=== PATIENT | female | born 1990 | race Hispanic/Latino ===

== ENCOUNTER 2018-10-13 08:30 | Outpatient (RCR) | payer OTHER, SELFPAY | END 2018-10-13 23:59 | LOC: DC 08:30 | PROVIDERS: Family Provider Family Medicine; PCP Family Medicine; Visit Provider Advanced Practice Midwife | DX: O24.419 Gestational diabetes mellitus in pregnancy, unspecified control (principal) | CPT/HCPCS: 97802 ==

== ENCOUNTER 2018-10-26 10:30 | Outpatient (RCR) | payer OTHER, SELFPAY | END 2018-10-26 23:59 | disposition home or self-care (01) | LOC: DC 10:30 | PROVIDERS: Family Provider Family Medicine; PCP Family Medicine; Visit Provider Advanced Practice Midwife | DX: O24.419 Gestational diabetes mellitus in pregnancy, unspecified control (principal); Z3A.00 Weeks of gestation of pregnancy not specified | CPT/HCPCS: G0108 ==

== ENCOUNTER 2018-12-10 19:07 | Inpatient (IN) | payer OTHER, SELFPAY ==
[2018-12-10 19:46] VITALS: BMI 32.9
--- NOTE | 2018-12-10 19:47 | PCM.HP.OB ---
- Problem List (1) GDM (gestational diabetes mellitus), class A1 Status: Acute History Date of Admission: 12/10/18 Final LORENZO: 12/11/18 Final LORENZO Source: US <20 weeks Gestational age: 39 Weeks and 6 Days History of this : This is a 28 year-old, G [1], P [0], at 39+6 weeks gestational age presenting for IOL for Diet-Controlled Gestational Diabetes. Patient denies any VB, LOF or DFM at this time. Patient denies any regular contractions currently. Smoking Status: Never smoker Alcohol: None Number of Fetus(es): 1 Heart Tracing: Baseline 115, moderate variability, + accels, no decels noted TOCO Analysis: Uterine irritability noted on tocometer History Past Pregnancies: Past Pregnancies Delivery Date Name GA/Weeks Outcome Route Weight Infant Gender Labor Length Anesthesia Delivery Location Provider FOB Labs: GBS negative, CF screen Negative, Sequential Screen Negative, Urine Culture Negative, Urine Tox Screen Negative, H/H = 11.8/35.2 --> , Syphilis Neg, HIV NR, Rubella Immune, HepBsAg Neg, O+, Abs Neg, GC/CT Neg, 1 hour GCT elevated and 3 hour GTT with 2 elevated values Expected Delivery Method: Spontaneous Vaginal Describe any other labor & delivery plans:: Patient planning for an epidural and desires to breastfeed Number of Visits: 13 Review of Systems Constitutional: Denies: Chills, Fever, Weight Change HEENT: Denies: Head Aches, Sinus Congestion, Sinus Drainage Cardiovascular: Denies: Chest Pain, Palpitations Respiratory: Denies: Cough, Shortness of breath at rest, Sputum production Gastrointestinal: Denies: Abdominal Pain, Nausea, Vomiting Genitourinary: Denies: Dysuria Musculoskeletal: Denies: Joint Pain, Joint Tenderness Skin: Denies: Rash, Wounds Neurological: Denies: Numbness, Tingling, Focal weakness Psychiatric: Denies: Anxiety, Depression, Homicidal Ideations, Suicidal Ideations Hematologic/ Lymphatic: Denies: Easy Bruising, Easy Bleeding Physical Exam Vitals: VSS, Afebrile - see nursing notes for vitals General: Alert, Oriented x3, No apparent distress HEENT: Atraumatic, Normocephalic. Negative for: Thyromegaly, Lymphadenopathy Cardiovascular: Regular rate, Regular Rhythm Lungs: Clear to auscultation Abdomen: Bowel Sounds Present, Gravid - EFW = 8.5#, Appropriate for Gestational Age Extremities:: No edema Neurological: Deep Tendon Reflexes 2+/4 and Symmetrical, Neuro grossly intact [employer]: Normal external genitalia. Negative for: Vulvar lesions Estimated gestational size: Appropriate for gestational size Presentation: Cephalic Cervix Dilation (cm): 1 Station: -3 Effacement (%): 60 Assessment/Plan All Active Problems GDM (gestational diabetes mellitus), class A1 (Acute) This is a 28 year-old, G [1], P [0], at 39+6 weeks gestational age, IOL for Type A1 GDM, Category I FHT 1) Admit patient - start IV at this time and send admission lab work 2) Cytotec 25mcg PV q 4 hours PRN x 6 doses max. Will reevaluate cervix after 1st dose 3) Consider summers bulb placement after 1st dose of cytotec placed 4) Dr. Strong aware of admission and is in agreeement with plan of care Nena MCCOY
[2018-12-10 20:02] LABS: Absolute Lymphocyte Count 2.79 X10^3/ul (0.83-4.51); Absolute Neutrophil Count 7.1 X10^3/uL (2.0-7.7); Basophil# 0.01 X10^3/uL; Basophil% 0.1 % (0-1); Eosinophil# 0.03 X10^3/uL; Eosinophils% 0.3 % (0-5); Hematocrit 37.2 % (37-47); Hemoglobin 12.5 g/dl (12.0-15.0); Lymphocyte # 2.79 X10^3/ul (4.0); Lymphocyte % 26.5 % (19-41); Mean Corp Hgb Conc 33.6 g/gl (32-36); Mean Corpuscular Hgb 31.1 pg (27.0-32.0); Mean Corpuscular Volume 92.5 fL (81-99); Mean Platelet Vol. 11.1 fl (6.2-12.0); Monocyte# 0.56 X10^3/uL; Monocyte% 5.3 % (0-10); Neutrophil # 7.11 X10^3/uL (2.7-7.7); Neutrophil % 67.6 % (47-70); Platelet Count 173 K/mm3 (150-450); RBC Distribution Width CV 13.2 % (11.6-14.6); RBC Distribution Width SD 44.7 fl (35.1-43.9); Red Blood Count 4.02 M/mm3 (4.2-5.4); White Blood Count 10.5 K/mm3 (4.4-11.0)
[2018-12-10 20:12] LABS: POSITIVE COUNT NO; POSITIVE DIFFERENTIAL NO; POSITIVE MORPHOLOGY NO
[2018-12-10] MEDS: Lactated Ringers 1,000 ML 50 ML IV (20:42)
[2018-12-11] MEDS: 0.9% Normal Saline 100 ML IV.SOLN. INTRA-UTER (05:23)
[2018-12-11] MEDS: Lactated Ringers 1,000 ML 50 ML IV ×2 (05:23→12:28)
--- NOTE | 2018-12-11 05:23 | PN.OBGYN_ITS ---
Patient Problems: Active and Suspected Problems GDM (gestational diabetes mellitus), class A1 (Acute) Subjective: Patient sitting up in bed at this time, reporting that she is feeling more irregular contractions currently. Decision for repeat SVE to be done now - patient has had 2 PV doses of cytotec. Will plan to insert summers bulb catheter if able. Objective: VSS, Afebrile FHT baseline 120, moderate variability, +accels, no decels noted Ctx irregular q 2-10 minutes, mildly strong to palpation SVE = 1.5/70/-2, cervix moderately firm and posterior - Physical Exam General: Alert, Oriented x3, Cooperative HEENT: Atraumatic, Normocephalic Lungs: Normal air movement Cardiovascular: Regular rate, Regular Rhythm Abdomen: Soft, Non Tender, Gravid Extremities: No edema Skin: No rashes Neurological: Cranial nerves II-XII grossly intact Psych/Mental Status: Normal Affect, Appropriate Weight: 223 lb Body Mass Index (BMI) 32.9 Laboratory Tests Past 24 Hrs 12/10/18 12/10/18 19:35 19:35 WBC 10.5 RBC 4.02 L Hgb 12.5 Hct 37.2 MCV 92.5 MCH 31.1 MCHC 33.6 RDW 13.2 RDW Differential 44.7 H Plt Count 173 MPV 11.1 Immature Gran % (Auto) 0.200 Neut % (Auto) 67.6 Lymph % (Auto) 26.5 Saline % (Auto) 5.3 Eos % (Auto) 0.3 Baso % (Auto) 0.1 Absolute Neuts (auto) 7.1 Absolute Lymphs (auto) 2.79 Total Counted Not Reportable Blood Type O POSITIVE Antibody Screen NEGATIVE Medical Necessity - Tobacco Use Smoking Status: Never smoker Assessment/Plan All Active Problems GDM (gestational diabetes mellitus), class A1 (Acute) 28 y/o @ 40 weeks, IOL for Diet-Controlled GDM, Category I FHT P: 1) Cervical summers bulb placed per protocol without difficulty 2) Plan to start IV pitocin for labor augmentation if summers bulb does not come out within 1 hour 3) Continue to encourage position changes and PO hydration at this time Nena MCCOY
[2018-12-11] MEDS: Oxytocin 30 units/NS 500 ml 30 UNITS/500 ML IV.SOLN IV (06:39)
--- NOTE | 2018-12-11 08:06 | PCM.PN.BLA ---
Progress Note pt seen at bedside, resting comfortably. VE: 2.5cm summers still in place. Will continue pitocin. Reviewed IOL plan going forward today. FHR remains category 1. FS well contolled during - decision made to check q2hr in active labor unless abnormal readings.
--- NOTE | 2018-12-11 11:52 | PCM.PN.BLA ---
Progress Note pt seen at bedside, VE: /-2- AROM performed clear fluid. Continue Pitocin. FHR tracing remains category 1. pt reports feeling contractions but not too painful at this time. If indicated may place IFM/IUPC. Anticipate .
[2018-12-11] MEDS: fentaNYL-bupivacaine (epidural) 100 ML BAG EPIDURAL ×2 (13:06→17:57)
[2018-12-11 14:05] LABS: Bedside Glucose 84 mg/dL (70-110)
--- NOTE | 2018-12-11 16:33 | PCM.PN.BLA ---
Progress Note pt seen at bedside- resting comfortable with epidural in place. VE performed- /-2. IUPC in place. continue pitocin. Anticipate . FHR remains category 1
[2018-12-11 16:46] LABS: Bedside Glucose 95 mg/dL (70-110)
[2018-12-11 19:36] LABS: Bedside Glucose 78 mg/dL (70-110)
[2018-12-11 20:26] LABS: Bedside Glucose 104 mg/dL (70-110)
[2018-12-11] MEDS: Oxytocin 30 units/NS 500 ml 30 UNITS/500 ML IV.SOLN 334 UNITS IV (21:47)
[2018-12-11] MEDS: Oxytocin 30 units/NS 500 ml 30 UNITS/500 ML IV.SOLN 167 UNITS IV (22:17)
--- NOTE | 2018-12-11 22:26 | PCM.OPRPT ---
Vaginal Delivery Maternal Presentation: Medically Indicated Induction Method of Induction: Pitocin, Moss Bulb, Cytotec Medical Reason for Induction: - - Gestational DM A1 Amniotic Membrane Rupture Type: Artificial Amniotic Fluid Description: Clear Final LORENZO: 12/11/18 Final LORENZO Source: US <20 weeks Gestational age: 40 Weeks and 0 Days Date of Procedure: 12/11/18 Pre-Operative Diagnosis: GMDA1, term gestation Post-Operative Diagnosis: Live male Surgery/ Procedure Performed: Spontaneous Vaginal Delivery Type of Anesthesia: Epidural Description of Procedure: of live male infant born without complications. with good maternal effort and downward gentle traction anterior shoulder delivered followed by rest of body. delayed cord clamping. placenta delivered with gentle traction. Presentation: Vertex Placental Delivery Description: Spontaneous Placenta Disposition: [facility] Cord Vessel Description: 3 Vessels Cord Entanglement: None Drain: Moss to straight drain Estimated Blood Loss: 450 Infant A gender: Male (1 minute): 8 (5 minute): 9 Episiotomy Description: None Laceration: Perineal Extension/lac, Vaginal Extension/lac - 2nd perineal repaired with 2-0 vicryl and 3-0 rapide. 1st degree vaginal repaired with 3-0 vicryl and 3-0 rapide, 1st degree, 2nd degree Medications given after delivery: IV Pitocin Complications: None
[2018-12-12 00:21] LABS: Bedside Glucose 119 mg/dL (70-110)
[2018-12-12] MEDS: Ibuprofen 600 MG Tablet PO ×3 (00:48→18:28)
[2018-12-12 03:35] VITALS: BP 108/59; PULSE 90; RESP 18; TEMP 37.1; O2SAT 95
[2018-12-12 08:00] VITALS: BP 114/59; PULSE 85; RESP 16; TEMP 36.5
[2018-12-12 12:00] VITALS: BP 117/58; PULSE 78; RESP 18; TEMP 36.5
--- NOTE | 2018-12-12 13:36 | PCM.PN.OB ---
Patient Problems: Active and Suspected Problems GDM (gestational diabetes mellitus), class A1 (Acute) Subjective: pt seen at bedside, doing well. pt reports good pain control. lochia mild. breast feeding. - Physical Exam General: Alert, Oriented x3 Abdomen: Soft, Non Tender, Non-Distended, - - fundus firm Extremities: No Calf Tenderness Neurological: Cranial nerves II-XII grossly intact Vital Signs Temp Pulse Resp BP Pulse Ox 97.7 F L 85 16 114/59 L 95 12/12/18 08:00 12/12/18 08:00 12/12/18 08:00 12/12/18 08:00 12/12/18 03:35 Oxygen Delivery Method Room Air Weight: 101.151 kg Body Mass Index (BMI) 32.9 Intake and Output for Last 24 Hours 12/10/18 12/11/18 12/12/18 23:59 23:59 23:59 Intake Total 2930 / 3811 881 / 881 Output Total 2500 / 3400 1500 / 1500 Balance 430 / 411 -619 / -619 POC Glucose 12/11/18 12/11/18 12/11/18 23:58 20:13 17:59 POC Glucose 119 H 104 78 12/11/18 12/11/18 16:05 13:54 POC Glucose 95 84 Medical Necessity - Tobacco Use Smoking Status: Never smoker Assessment/Plan All Active Problems GDM (gestational diabetes mellitus), class A1 (Acute) PPD#1, doing well routine care pain mgmt
[2018-12-12 16:00] VITALS: BP 116/65; PULSE 73; RESP 16; TEMP 36.4
[2018-12-12 20:00] VITALS: BP 115/69; PULSE 70; RESP 16; TEMP 36
[2018-12-12] MEDS: Acetaminophen 500 MG Tablet 1000 MG PO (20:08)
[2018-12-13] MEDS: Ibuprofen 600 MG Tablet PO ×4 (00:04→20:16)
[2018-12-13 01:50] VITALS: BP 100/56; PULSE 71; RESP 17; TEMP 36
[2018-12-13] MEDS: Acetaminophen 500 MG Tablet 1000 MG PO ×2 (04:04→12:24)
[2018-12-13 08:20] VITALS: BP 105/61; PULSE 66; RESP 16; TEMP 36.2
--- NOTE | 2018-12-13 09:22 | PCM.PN.OB ---
Patient Problems: Active and Suspected Problems GDM (gestational diabetes mellitus), class A1 (Acute) Subjective: pt seen at bedside, doing well. pt reports good pain control. lochia mild. breast feeding- supplementing with formula at this time too. - Physical Exam General: Alert, Oriented x3 Abdomen: Soft, Non-Distended, - - fundus firm Extremities: No Calf Tenderness Vital Signs Temp Pulse Resp BP Pulse Ox 96.8 F L 71 17 100/56 L 95 12/13/18 01:50 12/13/18 01:50 12/13/18 01:50 12/13/18 01:50 12/12/18 03:35 Oxygen Delivery Method Room Air Weight: 101.151 kg Body Mass Index (BMI) 32.9 Intake and Output for Last 24 Hours 12/11/18 12/12/18 12/13/18 23:59 23:59 23:59 Intake Total 2930 / 3811 881 / 881 Output Total 2500 / 3400 1500 / 1500 Balance 430 / 411 -619 / -619 Medical Necessity - Tobacco Use Smoking Status: Never smoker Assessment/Plan All Active Problems GDM (gestational diabetes mellitus), class A1 (Acute) PPD#2, doing well routine care pain mgmt dc home
--- NOTE | 2018-12-13 09:26 | DCINST_ITS ---
Discharge Diet: No Restrictions Discharge Activity: Return to Normal Activity, May not drive while taking narcotic pain medications., May Shower May resume sexual activity in: 4-6 weeks Additional Activity Instructions:: Nothing in the vagina for 4-6 weeks. You may return to work/school in 6 weeks. Call your doctor if your incision/area has: Continuous Slow Oozing, Sudden Increased Bleeding, Increased Pain/ Swelling, Increased Redness, Foul Smelling Discharge Additional Instructions: If you experience any of the following, contact your healthcare provider. * Bleeding that soaks a pad every hour for 2 hours * Fever 100.4 or higher * Unrelieved incision or abdominal pain * Swelling, redness, discharge or bleeding from your incision or episiotomy site * Your incision begins to separate * Problems urinating (including inability to urinate or burning while urinating). * Visual changes * Severe headache * Flu-like symptoms * Pain or redness in one of both of your breasts * Pain, warmth, tenderness or swelling in your legs, especially the calf area * Frequent nausea and vomiting * Symptoms of depression or anxiety If you experience any of the following, call 911 or go to the nearest Emergency Room. * Chest pain * Problems breathing * Seizure activity * Partial or complete paralysis of a body part, slurred speech, weakness or drooping of the face, or a sudden inability to walk or hold your balance Allergies/Adverse Reactions: Allergies No Known Allergies Allergy (Verified 12/10/18 19:47) Medications to take at Discharge Cholecalciferol (Vitamin D3) [Vitamin D3] 2,000 unit PO DAILY 12/10/18 Lactobacillus Acidophilus [Probiotic Acidophilus] 1 tab PO DAILY 12/10/18 Pnv No.95/Ferrous Fum/Folic AC [ Vitamin Tablet] 1 ea PO DAILY 12/10/18 Ibuprofen [Motrin] 600 mg PO Q6H PRN PRN #30 tab 12/13/18 The following prescriptions were given: Ibuprofen [Motrin] 600 mg PO Q6H PRN PRN #30 tab PRN Reason: Mild Pain (-08/23) Transmission Status: Pending to [facility] When: Call to make an appointment with your doctor in 6 weeks. If you had elevated Blood Pressure or 4th degree laceration you will need to be seen in 2 weeks. Primary Care Physician: Myron Jose III, MD [Primary Care Provider] - Test Results: Test results from this visit will be discussed in further detail at your follow- up appointment, if applicable.
[2018-12-13 13:45] VITALS: BP 116/70; PULSE 68; RESP 18; TEMP 36.7
[2018-12-13 19:45] VITALS: BP 129/79; PULSE 69; RESP 18; TEMP 36.4
== END 2018-12-13 22:10 | disposition home or self-care (01) | DRG 807 ==
PROVIDERS: Advanced Practice Midwife; Obstetrics & Gynecology; Admitting Provider Obstetrics & Gynecology; Family Provider Family Medicine; PCP Family Medicine; Visit Provider Obstetrics & Gynecology
DX: O24.429 Gestational diabetes mellitus in childbirth, unspecified control (principal); Z37.0 Single live birth; O70.1 Second degree perineal laceration during delivery; Z3A.40 40 weeks gestation of pregnancy
CPT/HCPCS: 59025; 59050; 82962; 85025; 86850; 86900; 99218; J7120; G0378

== ENCOUNTER 2021-01-04 07:00 | Inpatient (IN) | payer OTHER, SELFPAY ==
[2020-10-19 13:04] VITALS: BMI 32.9
[2021-01-04] VITALS (51 sets, daily range): BP systolic 114–157; BP diastolic 60–96; PULSE 32–118; TEMP 36.2–37.3; O2SAT 82–99; BMI 32.5
[2021-01-04] MEDS: Lactated Ringers 1,000 ML 50 ML IV (07:30)
[2021-01-04] MEDS: Oxytocin 30 units/NS 500 ml 30 UNITS/500 ML IV.SOLN IV (07:42)
[2021-01-04 07:50] LABS: Absolute Lymphocyte Count 3.21 X10^3/uL (0.83-4.51); Absolute Neutrophil Count 5.4 X10^3/uL (2.0-7.7); Basophil# 0.03 X10^3/uL; Basophil% 0.3 % (0-1); Eosinophil# 0.04 X10^3/uL; Eosinophils% 0.4 % (0-5); Hematocrit 38.6 % (37-47); Hemoglobin 12.8 g/dL (12.0-15.0); Lymphocyte # 3.21 X10^3/ul (0.83-4.51); Mean Corp Hgb Conc 33.2 g/dL (32-36); Mean Corpuscular Hgb 31.2 pg (27.0-32.0); Mean Corpuscular Volume 94.1 fL (81-99); Mean Platelet Vol. 11.2 fl (6.2-12.0); Monocyte% 5.5 % (0-10); NRBC Flagged by Analyzer 0 % (0-5); Neutrophil # 5.35 X10^3/uL (2.7-7.7); Neutrophil % 58.4 % (47-70); Platelet Count 182 K/mm3 (150-450); RBC Distribution Width CV 13.2 % (11.6-14.6); RBC Distribution Width SD 45.8 fl (35.1-43.9); White Blood Count 9.2 K/mm3 (4.4-11.0)
--- NOTE | 2021-01-04 11:02 | NURSING ---
RPR results obtained from office via phone. Office will fax a copy.
[2021-01-04] MEDS: Penicillin G 3,000,000 Units 50 ML 100 UNITS IV ×2 (12:51→16:52)
[2021-01-04] MEDS: Lactated Ringers 500 ML 999 ML IV (12:53)
--- NOTE | 2021-01-04 13:17 | PCM.HP.OB ---
HPI - General General Date of Admission: 01/04/21 HPI Narrative MARINO PEDROZA, is a 30 F @ 40.3 weeks who presents for IOL- Multip with roa score >6 and h/o covid during Maternal Data Information Final LORENZO: 01/01/21 Final LORENZO Source: US <20 weeks Gestational age: 40.3 PFSH PFSH Medical History (Updated 01/04/21 @ 13:[address] Marina Ellington MD) Gestational diabetes depression Home Medications Lactobacillus acidophilus 1 tab PO DAILY 12/10/18 [History Last Taken 12/09/18 22:30] PNV cmb#95-ferrous fumarate-FA 1 ea PO DAILY 12/10/18 [History Last Taken 12/09/18 22:30] cholecalciferol (vitamin D3) 2,000 unit PO DAILY 12/10/18 [History Last Taken 12/09/18 22:30] Allergy/AdvReac Type Severity Reaction Status Date / Time No Known Allergies Allergy Verified 12/10/18 19:47 Social History Smoking Status: Never smoker History Elective abortions Hx Para 1 Spontaneous abortions Hx # Term Pregnancies Ectopic pregnancies Hx # Pregnancies Multiple births # of living children Vital Signs Vital Signs Vital Signs: 01/04/21 07:11 01/04/21 08:08 01/04/21 09:15 Pulse Rate 99 80 75 Blood Pressure 132/76 H 131/77 H 131/73 H BP Systolic 132 131 131 BP Diastolic 76 77 73 01/04/21 11:47 Pulse Rate 67 Blood Pressure 114/71 BP Systolic 114 BP Diastolic 71 Weight Weight: 102.965 kg Body Mass Index (BMI) 32.5 Physical Exam Narrative VE: 360/-2 on arrival arom performed by DR Borja. Const alert and oriented x3 General Appearance: cooperative Labs Labs Labs: Blood Type O POSITIVE Antibody Screen NEGATIVE Hct 38.6 % (37-47) Hgb 12.8 g/dL (12.0-15.0) Rhogam given: No Assessment & Plan (1) Post term : PLAN: Admit to L&D [facility] FHR/TOCO Epidural if requested for pain Monitor VS Anticipate pitocin arom by dr borja- clear fluid IUPC placed by Dr. Chairez
[2021-01-04] MEDS: fentaNYL-bupivacaine (epidural) 100 ML BAG EPIDURAL ×2 (14:02→18:19)
[2021-01-04] MEDS: Lactated Ringers 1,000 ML 200 ML IV ×2 (14:47→19:17)
--- NOTE | 2021-01-04 20:01 | PCM.PN.BLA ---
Progress Note pt seen at bedside, VE: /-1. continue pitocin. anticipate . continue GBS prophylaxis
[2021-01-04] MEDS: Oxytocin 30 units/NS 500 ml 30 UNITS/500 ML IV.SOLN 334 UNITS IV (20:43)
--- NOTE | 2021-01-04 21:03 | EX.PCM.OBRPT ---
Assessment & Plan (1) Vaginal delivery: (2) First degree perineal laceration: Maternal Data Information Final LORENZO: 01/01/21 Final LORENZO Source: US <20 weeks Gestational age: 40.3 Vaginal Delivery Maternal Presentation Maternal Presentation: Elective Induction Type of Induction: Pitocin and Amniotomy Operative Information Date of Procedure: 01/04/21 Pre-Operative Diagnosis: post term gestation Post-Operative Diagnosis: same, live female born Surgery / Procedure Performed: Spontaneous Vaginal Delivery Type of Anesthesia: Epidural Drain: Moss to straight drain Estimated Blood Loss: 200 Time of Delivery: 20:41 Findings Description of Procedure: of a live female infant vigorous at . was delivered with good maternal pushing efforts without complication. was placed on the mother's chest for immediate skin to skin delayed cord clamping was performed. First-degree perineal and vaginal laceration were appreciated. They were repaired with 3-0 Rapide in a usual fashion. Placenta was delivered without complication and intact. Presentation: Vertex Amniotic Membrane Rupture Type: Artificial Amniotic Fluid Description: Clear Placental Delivery Description: Spontaneous Placenta Disposition: [facility] Specimen(s) Removed: placenta Cord Vessel Description: 3 Vessels Cord Entanglement: None Infant A Gender: Female (1 minute): 9 (5 minute): 9 Delayed Cord Clamping: Yes Post Vaginal Delivery Medications Given After Delivery: IV Pitocin Episiotomy Description: None Laceration: Perineal Extension/lac, Vaginal Extension/lac and 1st degree Complication Complications: None Admit VTE Documentation VTE Present on Admission: No VTE Mechan Device Prophylaxis: None VTE Pharm Prophylaxis Ordered: No
[2021-01-04] MEDS: Ibuprofen 600 MG Tablet PO (22:45)
[2021-01-04] MEDS: 0.9% Saline Lock 10 ML Syringe IV (23:04)
[2021-01-05 03:51] VITALS: BP 118/66; PULSE 66; RESP 16; TEMP 36.6
[2021-01-05] MEDS: Acetaminophen 500 MG Tablet 1000 MG PO ×3 (03:51→23:17)
[2021-01-05 08:01] VITALS: BP 109/69; RESP 16; TEMP 36.4
[2021-01-05] MEDS: Ibuprofen 600 MG Tablet PO ×2 (08:08→16:23)
--- NOTE | 2021-01-05 08:53 | PN.OBGYN_ITS ---
Subjective Subjective Doing well per patient and nursing staff. Ambulating and taking PO without difficulty. Voiding and passing flatus. Pain controlled. , services for assistance. Denies headache, visual changes, chest pain, shortness of breath, leg pain or increased bleeding. Lochia normal. Planning DC home tomorrow Objective Data Objective Data Vital Signs: Vital Signs Temp Pulse Resp BP Pulse Ox 97.5 F L 66 16 109/69 97 01/05/21 08:01 01/05/21 03:51 01/05/21 08:01 01/05/21 08:01 01/04/21 22:51 Oxygen Delivery Method Room Air Weight: 227 lb Body Mass Index (BMI) 32.5 Intake & Output: Intake and Output for Last 24 Hours 01/03/21 01/04/21 01/05/21 23:59 23:59 23:59 Intake Total 6226.35 / 6226.35 Output Total 2750 / 2750 1000 / 1000 Balance 3476.35 / 3476.35 -1000 / -1000 Lab / Micro Data Result Diagrams: 01/04/21 07:20 Labs: Laboratory Results - last 24 hr 01/04/21 07:20: Blood Type O POSITIVE, Antibody Screen NEGATIVE Micro: Microbiology 01/04/21 07:35 Mucosa - Nasopharyngeal SARS-CoV-2 Antigen (Rapid) - Final ROS Constitutional Constitutional: Reports systems reviewed and no addt'l complaints, except as documented; Denies headache(s) Eyes Eyes: Denies acute decrease in peripheral vision, blurry vision or change in vision ENT HEENT: Reports systems reviewed and no addt'l complaints, except as documented Cardiovascular Cardiovascular: Denies chest pain or dizziness Respiratory/Chest Respiratory/Chest: Denies cough, dyspnea, dyspnea on exertion, shortness of breath at rest or shortness of breath with exertion Gastrointestinal Gastrointestinal: Denies abdominal pain, diarrhea, nausea or vomiting Genitourinary Genitourinary: Denies abdominal discomfort Musculoskeletal Musculoskeletal: Denies limited range of motion Integumentary Integumentary: Reports systems reviewed and no addt'l complaints, except as documented Neurologic Neurologic: Reports systems reviewed and no addt'l complaints, except as documented Psychiatric Psychiatric: Reports systems reviewed and no addt'l complaints, except as documented Endocrine Endocrinology: Reports systems reviewed and no addt'l complaints, except as do cumented Hematologic/Lymphatic Hematologic/Lymphatic: Reports systems reviewed and no addt'l complaints, except as documented Allergic/Immunologic Allergic/Immunologic: Reports systems reviewed and no addt'l complaints, except as documented Physical Exam Const alert and oriented x3 General Appearance: cooperative Orientation / Consciousness: awake, oriented to person, oriented to place and oriented to time Exam Limitations: no limitations HEENT normocephalic Head and Scalp: normal to inspection, normocephalic and atraumatic Face and Sinus: normal facial exam Eyes General Eye: normal appearance of both eyes Neck full ROM Chest Chest: symmetrical chest wall rise Resp normal respiratory effort and normal air movement Auscultation: clear to auscultation bilaterally Cardio regular rate, regular rhythm, S1 normal heart sound, S2 normal heart sound, no murmurs, no rub, no gallops and no clicks GI normal to inspection, nondistended, normoactive bowel sounds and non-tender GI Narrative: Fundus firm to below U appearance of the vagina normal Bladder / Kidney Exam: no CVA tenderness Back/Spine normal ROM Extremity normal to inspection and full ROM Skin no rashes or lesions noted Neuro oriented x3, CN's II-XII intact bilaterally and moves all extremities Sensorium / Orientation: awake, alert and oriented to person Motor Exam: clonus absent Deep Tendon Reflexes: Rt Patellar (L4): 2+ and Lt Patellar (L4): 2+ Assessment & Plan (1) First degree perineal laceration: (2) Vaginal delivery: (3) GDM (gestational diabetes mellitus), class A1: PLAN: 1. Routine and breast-feeding instructions 2. Pain controlled 3. Vital stable 4. Planning D/C home tomorrow
[2021-01-05 12:33] VITALS: BP 108/75; TEMP 36.3
[2021-01-05 16:26] VITALS: BP 121/78; RESP 16; TEMP 36.3
[2021-01-05 20:20] VITALS: BP 113/75; PULSE 70; RESP 16; TEMP 36.6
[2021-01-06 01:05] VITALS: BP 112/67; PULSE 74; RESP 16; TEMP 36.6
[2021-01-06] MEDS: Ibuprofen 600 MG Tablet PO (04:17)
[2021-01-06 08:00] VITALS: BP 119/77; PULSE 68; RESP 16; TEMP 36.4
--- NOTE | 2021-01-06 09:49 | PCM.PN.OB ---
Subjective Subjective Doing well per patient and nursing staff. Ambulating and taking PO without difficulty. Voiding and passing flatus. Pain controlled. , services for assistance. Denies headache, visual changes, chest pain, shortness of breath, leg pain or increased bleeding. Lochia normal. Planning DC home today. Objective Data Objective Data Vital Signs: Vital Signs Temp Pulse Resp BP Pulse Ox 97.5 F L 68 16 119/77 97 01/06/21 08:00 01/06/21 08:00 01/06/21 08:00 01/06/21 08:00 01/04/21 22:51 Oxygen Delivery Method Room Air Weight: 227 lb Body Mass Index (BMI) 32.5 Intake & Output: Intake and Output for Last 24 Hours 01/04/21 01/05/21 01/06/21 23:59 23:59 23:59 Intake Total 6226.35 / 6226.35 Output Total 2750 / 2750 1000 / 1000 Balance 3476.35 / 3476.35 -1000 / -1000 Lab / Micro Data Result Diagrams: 01/04/21 07:20 Micro: Microbiology 01/04/21 07:35 Mucosa - Nasopharyngeal SARS-CoV-2 Antigen (Rapid) - Final ROS Constitutional Constitutional: Reports systems reviewed and no addt'l complaints, except as documented; Denies headache(s) Eyes Eyes: Denies acute decrease in peripheral vision, blurry vision or change in vision ENT HEENT: Reports systems reviewed and no addt'l complaints, except as documented Cardiovascular Cardiovascular: Denies chest pain or dizziness Respiratory/Chest Respiratory/Chest: Denies cough, dyspnea, dyspnea on exertion, shortness of breath at rest or shortness of breath with exertion Gastrointestinal Gastrointestinal: Denies abdominal pain, diarrhea, nausea or vomiting Genitourinary Genitourinary: Denies abdominal discomfort Musculoskeletal Musculoskeletal: Denies limited range of motion Integumentary Integumentary: Reports systems reviewed and no addt'l complaints, except as documented Neurologic Neurologic: Reports systems reviewed and no addt'l complaints, except as documented Psychiatric Psychiatric: Reports systems reviewed and no addt'l complaints, except as documented Endocrine Endocrinology: Reports systems reviewed and no addt'l complaints, except as documented Hematologic/Lymphatic Hematologic/Lymphatic: Reports systems reviewed and no addt'l complaints, except as documented Allergic/Immunologic Allergic/Immunologic: Reports systems reviewed and no addt'l complaints, except as documented Physical Exam Const alert and oriented x3 General Appearance: cooperative Orientation / Consciousness: awake, oriented to person, oriented to place and oriented to time Exam Limitations: no limitations HEENT normocephalic Head and Scalp: normal to inspection, normocephalic and atraumatic Face and Sinus: normal facial exam Eyes General Eye: normal appearance of both eyes Neck full ROM Chest Chest: symmetrical chest wall rise Resp normal respiratory effort and normal air movement Auscultation: clear to auscultation bilaterally Cardio regular rate, regular rhythm, S1 normal heart sound, S2 normal heart sound, no murmurs, no rub, no gallops and no clicks GI normal to inspection, nondistended, normoactive bowel sounds and non-tender GI Narrative: Fundus firm 2 below U appearance of the vagina normal Bladder / Kidney Exam: no CVA tenderness Back/Spine normal ROM Extremity normal to inspection and full ROM Skin no rashes or lesions noted Neuro oriented x3, CN's II-XII intact bilaterally and moves all extremities Sensorium / Orientation: awake, alert and oriented to person Motor Exam: clonus absent Deep Tendon Reflexes: Rt Patellar (L4): 2+ and Lt Patellar (L4): 2+ Assessment & Plan (1) First degree perineal laceration: (2) Vaginal delivery: (3) GDM (gestational diabetes mellitus), class A1: PLAN: 1. Routine spitting instructions 2. Blood pressure stable 3. Pain controlled 4. Follow-up in 2 weeks for virtual visit in 6 weeks for visit. Will complete 2-hour glucose after 6 weeks. 5. Declines LARC 6. DC home today
--- NOTE | 2021-01-06 11:00 | PCM.DC.SUM ---
Providers Date of Admission: 01/04/21 Primary Care Physician: Dr. Myron Jose III, MD Reason For Visit: VAG Diagnosis Discharge Diagnosis (1) First degree perineal laceration: Status: Acute Code(s): O70.0 - First degree perineal laceration during delivery (2) Vaginal delivery: Status: Acute Code(s): O80 - Encounter for full-term uncomplicated delivery (3) GDM (gestational diabetes mellitus), class A1: Status: Acute Code(s): O24.410 - Gestational diabetes mellitus in , diet controlled Medications at Discharge Home Medications Lactobacillus acidophilus 1 tab PO DAILY 12/10/18 PNV cmb#95-ferrous fumarate-FA 1 ea PO DAILY 12/10/18 cholecalciferol (vitamin D3) 2,000 unit PO DAILY 12/10/18 ibuprofen 600 mg PO Q6H PRN PRN #30 tab 01/06/21 Weight / BMI Weight Weight: 227 lb Body Mass Index (BMI) 32.5 ABG / Lab / Microbiology Data Result Diagrams: 01/04/21 07:20 Microbiology: Microbiology 01/04/21 07:35 Mucosa - Nasopharyngeal SARS-CoV-2 Antigen (Rapid) - Final D/C Instructions Discharge Diet: No restrictions Discharge Activity: Return to Normal Activity, May Drive, May Shower and May Take a Tub Bath May resume sexual activity in: 6 weeks Weight Bearing Status: Full weight bearing Lifting Restricted to (Lbs): 50 Call your doctor if your incision/area has: Sudden Increased Bleeding, Increased Pain/ Swelling, Increased Redness and Foul Smelling Discharge Call your doctor if you observe: Fever of 101 or Higher, Inability to urinate, Inability to have a bowel movement, Using more than 1 pad per hour, Shortness of breath, Dizziness, Fainting spells, Chest pain, Increased palpitations (irregular heartbeat), Calf discomfort and Uncontrolled pain Meaningful Use Info Meaningful Use Diagnoses (Choose all that apply): None applicable Discharge Plan Admission Admit Date/Time: 01/04/21 07:00 Primary Reason for Your Visit: Induction of Labor Attending Provider: Marina Ellington Primary Care Provider: Myron Jose III Instructions Patient Instructions: After a Vaginal Additional Instructions / Restrictions: Follow up in 2 weeks for virtual visit and 6 weeks for visit Discharge Orders/Prescriptions Prescriptions: New ibuprofen 600 mg Tablet 600 mg PO Q6H PRN PRN (Reason: Pain Score 1-3) Qty: 30 RF: 0 No Action PNV cmb#95-ferrous fumarate-FA 1 EACH tablet 1 ea PO DAILY RF: 0 cholecalciferol (vitamin D3) 2,000 UNIT tablet 2,000 unit PO DAILY RF: 0 Lactobacillus acidophilus 1 EACH tablet 1 tab PO DAILY RF: 0 Referrals / Follow Up: Myron Jose III, MD [Primary Care Provider] - Disposition Disposition (needs filled in before D/C Order can be placed): Home, Self Care
== END 2021-01-06 11:30 | disposition home or self-care (01) | DRG 807 ==
PROVIDERS: Obstetrics & Gynecology; Admitting Provider Obstetrics & Gynecology; PCP Family Medicine; Visit Provider Obstetrics & Gynecology
DX: O48.0 Post-term pregnancy (principal); O24.420 Gestational diabetes mellitus in childbirth, diet controlled; O70.0 First degree perineal laceration during delivery; Z20.822 Contact with and (suspected) exposure to COVID-19; Z86.16 Personal history of COVID-19; Z3A.40 40 weeks gestation of pregnancy; Z37.0 Single live birth
CPT/HCPCS: 59025; 59050; 85025; 86850; 86900; 86901; 87426; 99218; J7120; A4216; G0378

== ENCOUNTER 2022-08-29 07:03 | Inpatient (IN) | payer BC, SELFPAY ==
[2022-08-29] VITALS (76 sets, daily range): BP systolic 93–150; BP diastolic 50–93; PULSE 62–92; TEMP 36.2–37.3; O2SAT 83–100; BMI 31.2
[2022-08-29] MEDS: 0.9% Normal Saline Single 100 ML IV.SOLN. INTRA-UTER (08:10)
[2022-08-29] MEDS: Lactated Ringers 1,000 ML 50 ML IV (08:10)
--- NOTE | 2022-08-29 08:25 | PCM.HP.OB ---
HPI - General General Date of Admission: 08/29/22 Date of Service: 08/29/22 Chief Complaint: IOL for GDMA1 HPI Narrative MARINO PEDROZA, is a 31 F @ 39 weeks who presents for IOL for GDMA1 last growth [id number] on 08/19/22, baby has unstable lie- was transverse now vertex today. [facility] Medical History (Updated 08/29/22 @ 08:[address] Marina Ellington MD) Gestational diabetes depression Home Medications vit no.95-ferrous fumarate 28 mg-folic acid 800 mcg tablet 1 ea PO DAILY 12/10/18 [History Last Taken 08/27/22] docosahexaenoic acid 200 mg capsule 200 mg PO DAILY 08/29/22 [History Last Taken Unknown] Allergy/AdvReac Type Severity Reaction Status Date / Time citric acid Allergy Rash Verified 08/29/22 07:30 Social History Smoking Status: Never smoker History Elective abortions Hx Para 1 Spontaneous abortions Hx # Term Pregnancies Ectopic pregnancies Hx # Pregnancies Multiple births # of living children NST FHR Rate Baby A Baseline: 145 Variability:: Moderate Accelerations:: 15 x 15 Decelerations:: None NST Reactive:: Yes FHR Category:: Category I Uterine Activity:: irregular Vital Signs Vital Signs Vital Signs: 08/29/22 08:20 08/29/22 08:20 08/29/22 08:20 Temperature Temperature Source Temporal Pulse Rate 77 Blood Pressure 120/83 H BP Systolic 120 BP Diastolic 83 08/29/22 08:20 Temperature 98.9 F Temperature Source Pulse Rate Blood Pressure BP Systolic BP Diastolic Weight Weight: 96 kg Body Mass Index (BMI) 31.2 Physical Exam Narrative VERTEX on exam- 1.5/70/-2 Const alert and oriented x3 General Appearance: cooperative HEENT normocephalic GI GI Narrative: Gravid, non tender to palpation. OB / External & Speculum: external exam normal Extremity normal to inspection Skin no rashes or lesions noted Neuro oriented x3 and CN's II-XII intact bilaterally Psych Appearance: grossly normal Labs Labs Labs: Blood Type O POSITIVE Antibody Screen NEGATIVE Hct 38.6 % (37-47) Hgb 12.8 g/dL (12.0-15.0) Rhogam given: No Assessment & Plan (1) Gestational diabetes: (2) 39 weeks gestation of : (3) Excessive growth affecting management of mother: PLAN: Plan Admit to L&D Montior FHR/TOCO Epidural if requested for pain Monitor VS Anticipate SETH and PIT VERTEX on exam today
[2022-08-29] MEDS: Oxytocin 15 Units/NS 250ml 15 UNITS/250 ML IV.SOLN 2 UNITS IV (08:35)
[2022-08-29 08:54] LABS: Absolute Lymphocyte Count 2.69 X10^3/uL (0.83-4.51); Absolute Neutrophil Count 5.1 X10^3/uL (2.0-7.7); Basophil# 0.03 X10^3/uL; Basophil% 0.4 % (0-1); Eosinophil# 0.03 X10^3/uL; Eosinophils% 0.4 % (0-5); Hematocrit 37.2 % (37-47); Hemoglobin 12.5 g/dL (12.0-15.0); Lymphocyte # 2.69 X10^3/ul (0.83-4.51); Lymphocyte % 32.2 % (19-41); Mean Corp Hgb Conc 33.6 g/dL (32-36); Mean Corpuscular Hgb 31.3 pg (27.0-32.0); Monocyte# 0.46 X10^3/uL; Monocyte% 5.5 % (0-10); NRBC Flagged by Analyzer 0 % (0-5); Neutrophil # 5.11 X10^3/uL (2.7-7.7); Neutrophil % 61.1 % (47-70); Platelet Count 145 K/mm3 (150-450); RBC Distribution Width CV 13.2 % (11.6-14.6); RBC Distribution Width SD 45.3 fl (35.1-43.9); White Blood Count 8.4 K/mm3 (4.4-11.0)
[2022-08-29 09:36] LABS: Syphilis Antibodies Non-reactive
[2022-08-29 10:30] LABS: Bedside Glucose 70 mg/dL (74-106)
[2022-08-29 10:30] LABS: Bedside Glucose 80 mg/dL (74-106)
[2022-08-29] MEDS: LACTATED RINGERS 500 ML 999 ML IV (12:19)
--- NOTE | 2022-08-29 12:20 | PCM.PN.BLA ---
Progress Note Patient seen at bedside, doing well. Patient reports still comfortable with contractions. Vaginal exam performed and AROM performed. Small amount of clear fluid appreciated. Vaginal exam she has 3-4/70/-2. Continue Pitocin. Epidural when requested. heart rate tracing remains category 1 reactive.
[2022-08-29] MEDS: Penicillin G 3,000,000 Units 50 ML 100 UNITS IV ×2 (12:55→16:50)
[2022-08-29] MEDS: fentaNYL-bupivacaine (epidural) 100 ML BAG EPIDURAL ×2 (14:05→18:35)
[2022-08-29 15:00] LABS: Bedside Glucose 72 mg/dL (74-106)
[2022-08-29] MEDS: Lactated Ringers 1,000 ML 200 ML IV (16:44)
[2022-08-29 19:15] LABS: Bedside Glucose 60 mg/dL (74-106)
[2022-08-29 19:15] LABS: Bedside Glucose 82 mg/dL (74-106)
[2022-08-29 19:15] LABS: Bedside Glucose 60 mg/dL (74-106)
--- NOTE | 2022-08-29 19:19 | PCM.PN.BLA ---
Progress Note Patient seen at bedside, doing well with epidural in place. Vaginal exam performed she is 5-6/70/-2. Continue Pitocin at 20 M use. heart rate tracing remains category 1. Contractions are every 2 to 4 minutes. Dissipate a normal spontaneous vaginal delivery.
--- NOTE | 2022-08-29 20:53 | EX.PCM.OBRPT ---
Vaginal Delivery Maternal Presentation Maternal Presentation: Medically Indicated Induction Maternal Presentation: IOL for GDMA1 Type of Induction: Pitocin and Moss Bulb Medical Reason for Induction: - (gdma1) Operative Information Date of Procedure: 08/29/22 Pre-Operative Diagnosis: 39 weeks, GDMA1 Post-Operative Diagnosis: same, live female Surgery / Procedure Performed: Spontaneous Vaginal Delivery Type of Anesthesia: Epidural Drain: Moss to straight drain Estimated Blood Loss: 150 Time of Delivery: 20:43 Findings Description of Procedure: Progressed to fully dilated. Good maternal pushing efforts delivered the infant's head followed by gentle downward traction delivery of the anterior shoulder followed by the rest the infant's body. There were no complications with delivery infant was placed on the mother's chest for immediate skin to skin. Delayed cord clamping x60 seconds was performed. Placenta was then delivered without complication and intact. Fundus was firm. No vaginal or vulvar lacerations were appreciated. Presentation: Vertex Amniotic Membrane Rupture Type: Artificial Amniotic Fluid Description: Clear Placental Delivery Description: Expressed Placenta Disposition: [facility] Specimen(s) Removed: Placenta Cord Vessel Description: 3 Vessels Cord Entanglement: None A Gender: Female (1 minute): 8 (5 minute): 9 Delayed Cord Clamping: Yes Post Vaginal Delivery Medications Given After Delivery: IV Pitocin Episiotomy Description: None Laceration: None Complication Complications: None
[2022-08-29] MEDS: Methylergonovine 0.2 MG/ML Ampul IM ×2 (21:14→21:53)
[2022-08-29] MEDS: Carboprost Tromethamine 250 MCG/ML Ampul IM (21:31)
[2022-08-29] MEDS: Oxytocin 15 Units/NS 250ml 15 UNITS/250 ML IV.SOLN 167 UNITS IV (22:00)
[2022-08-29 22:45] LABS: Bedside Glucose 84 mg/dL (74-106)
[2022-08-29] MEDS: Acetaminophen 500 MG Tablet 1000 MG PO (23:10)
[2022-08-30] VITALS (10 sets, daily range): BP systolic 103–118; BP diastolic 68–78; PULSE 56–81; RESP 16–18; TEMP 36.2–37.1; O2SAT 96–97
[2022-08-30] MEDS: Acetaminophen 500 MG Tablet 1000 MG PO ×3 (05:16→21:28)
[2022-08-30] MEDS: 0.9% Saline Lock 10 ML Syringe IV (05:17)
[2022-08-30 06:01] LABS: Bedside Glucose 94 mg/dL (74-106)
--- NOTE | 2022-08-30 08:26 | PCM.PN.OB ---
Subjective Subjective Patient seen at bedside. infant without difficulty. Ambulating and voiding without difficulty. Lochia decreased. Denies any headache, dizziness, SOB or CP. Objective Data Objective Data Vital Signs: Vital Signs Temp Pulse Resp BP Pulse Ox O2 Del Method 97.8 F 75 16 118/78 92 Room Air 08/30/22 04:52 08/30/22 04:52 08/30/22 04:52 08/30/22 04:52 08/29/22 22:45 08/30/22 04:52 Oxygen Delivery Method Room Air Weight: 211 lb 10.3 oz Body Mass Index (BMI) 31.2 Intake & Output: Intake and Output for Last 24 Hours 08/28/22 08/29/22 08/30/22 23:59 23:59 23:59 Intake Total 3125.00 / 3125.00 240 / 240 Output Total 1675 / 1675 2650 / 2650 Balance 1450.00 / 1450.00 -2410 / -2410 Lab / Micro Data Result Diagrams: 08/29/22 08:28 Labs: Laboratory Results - last 24 hr 08/29/22 08:28: WBC 8.4, RBC 4.00 L, Hgb 12.5, Hct 37.2, MCV 93.0, MCH 31.3, MCHC 33.6, RDW Std Deviation 45.3 H, RDW Coeff of Hilton 13.2, Plt Count 145 L, MPV 11.0, Immature Gran % (Auto) 0.400, Neut % (Auto) 61.1, Lymph % (Auto) 32.2, [place] % (Auto) 5.5, Eos % (Auto) 0.4, Baso % (Auto) 0.4, Absolute Neuts (auto) 5.1, Absolute Lymphs (auto) 2.69, Nucleated RBC % 0 08/29/22 08:28: Blood Type O POSITIVE, Antibody Screen NEGATIVE 08/29/22 08:28: Syphilis Total Ab Non-reactive 08/29/22 08:46: POC Glucose 80 08/29/22 09:52: POC Glucose 70 L 08/29/22 14:14: POC Glucose 72 L 08/29/22 18:04: POC Glucose 60 L 08/29/22 18:30: POC Glucose 60 L 08/29/22 18:52: POC Glucose 82 08/29/22 22:16: POC Glucose 84 08/30/22 05:38: POC Glucose 94 ROS Constitutional Constitutional: Reports systems reviewed and no addt'l complaints, except as documented; Denies headache(s) Eyes Eyes: Denies acute decrease in peripheral vision, blurry vision or change in vision ENT HEENT: Reports systems reviewed and no addt'l complaints, except as documented Cardiovascular Cardiovascular: Denies chest pain or dizziness Respiratory/Chest Respiratory/Chest: Denies cough, dyspnea, dyspnea on exertion, shortness of breath at rest or shortness of breath with exertion Gastrointestinal Gastrointestinal: Denies abdominal pain, diarrhea, nausea or vomiting Genitourinary Genitourinary: Denies abdominal discomfort Musculoskeletal Musculoskeletal: Denies limited range of motion Integumentary Integumentary: Reports systems reviewed and no addt'l complaints, except as documented Neurologic Neurologic: Reports systems reviewed and no addt'l complaints, except as documented Psychiatric Psychiatric: Reports systems reviewed and no addt'l complaints, except as documented Endocrine Endocrinology: Reports systems reviewed and no addt'l complaints, except as documented Hematologic/Lymphatic Hematologic/Lymphatic: Reports systems reviewed and no addt'l complaints, except as documented Allergic/Immunologic Allergic/Immunologic: Reports systems reviewed and no addt'l complaints, except as documented Physical Exam Const alert and no apparent distress General Appearance: cooperative and comfortable Exam Limitations: no limitations HEENT normocephalic Eyes General Eye: normal appearance of both eyes Neck full ROM General: normal visual inspection Chest Chest: symmetrical chest wall rise Resp normal respiratory effort and normal air movement Effort and Inspection: symmetric chest movement Auscultation: clear to auscultation bilaterally Cardio regular rate and regular rhythm GI normal to inspection, nondistended, normoactive bowel sounds Back/Spine normal ROM Extremity full ROM and no calf tenderness General Extremity: normal exam except as noted Skin no rashes or lesions noted Neuro CN's II-XII intact bilaterally Psych mental status grossly normal Assessment & Plan (1) Vaginal delivery: (2) First degree perineal laceration: (3) Gestational diabetes: (4) atony of uterus with hemorrhage, delivered: PLAN: Plan PPD 1 support Repeat CBC Pain control Anticipate discharge tomorrow
[2022-08-30 09:40] LABS: Hematocrit 39.7 % (37-47); Hemoglobin 12.9 g/dL (12.0-15.0); Mean Corp Hgb Conc 32.5 g/dL (32-36); Mean Corpuscular Hgb 30.8 pg (27.0-32.0); Mean Corpuscular Volume 94.7 fL (81-99); Mean Platelet Vol. 11.2 fl (6.2-12.0); Platelet Count 134 K/mm3 (150-450); RBC Distribution Width CV 13.3 % (11.6-14.6); RBC Distribution Width SD 46.2 fl (35.1-43.9); Red Blood Count 4.19 M/mm3 (4.2-5.4); White Blood Count 11.3 K/mm3 (4.4-11.0)
--- NOTE | 2022-08-30 10:00 | PCM.PN.BLA ---
Progress Note pt seen at bedside, doing well. Pt requesting to start Celexa 10mg PO daily- previously took PP. Order placed.
[2022-08-30] MEDS: Citalopram 20 MG Tablet 10 MG PO (10:46)
[2022-08-30] MEDS: Ibuprofen 600 MG Tablet PO ×2 (10:47→18:23)
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
[2022-08-31 01:48] VITALS: BP 109/64; PULSE 61; O2SAT 95
[2022-08-31 01:52] VITALS: BP 109/64; PULSE 61; RESP 16; TEMP 36.6; O2SAT 95
[2022-08-31] MEDS: Ibuprofen 600 MG Tablet PO (01:56)
--- NOTE | 2022-08-31 07:02 | PCM.PN.OB ---
Subjective Subjective Patient seen at bedside. Feeling good. Denies any headache, vision changes, dizziness, SOB or CP. Ambulating and voiding without difficulty. independently. Desires discharge home today. Objective Data Objective Data Vital Signs: Vital Signs Temp Pulse Resp BP Pulse Ox O2 Del Method 97.8 F 61 16 109/64 95 Room Air 08/31/22 01:52 08/31/22 01:52 08/31/22 01:52 08/31/22 01:52 08/31/22 01:52 08/31/22 01:52 Oxygen Delivery Method Room Air Weight: 211 lb 10.3 oz Body Mass Index (BMI) 31.2 Intake & Output: Intake and Output for Last 24 Hours 08/29/22 08/30/22 08/31/22 23:59 23:59 23:59 Intake Total 3125.00 / 3125.00 240 / 240 Output Total 1675 / 1675 2650 / 2650 Balance 1450.00 / 1450.00 -2410 / -2410 Lab / Micro Data Result Diagrams: 08/30/22 09:25 Labs: Laboratory Results - last 24 hr 08/30/22 09:25: WBC 11.3 H, RBC 4.19 L, Hgb 12.9, Hct 39.7, MCV 94.7, MCH 30.8, MCHC 32.5, RDW Std Deviation 46.2 H, RDW Coeff of Hilton 13.3, Plt Count 134 L, MPV 11.2 ROS Eyes Eyes: Denies blurry vision, change in vision or spots in vision ENT HEENT: Denies dizziness or headache(s) Cardiovascular Cardiovascular: Denies abdominal pain, chest pain or dyspnea Respiratory/Chest Respiratory/Chest: Denies cough, dyspnea, shortness of breath at rest or shortness of breath with exertion Gastrointestinal Gastrointestinal: Denies abdominal pain, diarrhea or vomiting Genitourinary Genitourinary: Denies change in urinary stream, difficulty urinating or dysuria Musculoskeletal Musculoskeletal: Reports none Integumentary Integumentary: Denies rash Neurologic Neurologic: Denies dizziness, headache(s), memory loss or weakness Physical Exam Const alert and no apparent distress General Appearance: cooperative and comfortable Exam Limitations: no limitations HEENT normocephalic Eyes General Eye: normal appearance of both eyes Neck full ROM General: normal visual inspection Chest Chest: symmetrical chest wall rise Resp normal respiratory effort and normal air movement Effort and Inspection: symmetric chest movement Auscultation: clear to auscultation bilaterally Cardio regular rate and regular rhythm GI normal to inspection, nondistended, normoactive bowel sounds Back/Spine normal ROM Extremity full ROM and no calf tenderness General Extremity: normal exam except as noted Skin no rashes or lesions noted Neuro CN's II-XII intact bilaterally Psych mental status grossly normal Assessment & Plan (1) atony of uterus with hemorrhage, delivered: (2) Vaginal delivery: (3) First degree perineal laceration: (4) Gestational diabetes: PLAN: Plan PPD 2 Routine care HGB stable D/C home with follow up in office Rx for Celexa 10 mg PO - per Dr. Chairez
--- NOTE | 2022-08-31 07:06 | PCM.DC ---
Discharge Instructions Diet Discharge Diet: No restrictions Activity Discharge Activity: Return to Normal Activity, May Shower and May Take a Tub Bath May resume sexual activity in: 4-6 weeks Weight Bearing Status: Weight bearing as tolerated Dressing / Incision Call your doctor if you observe: Inability to urinate, Using more than 1 pad per hour, Shortness of breath, Dizziness, Swelling in the ankles, Chest pain, Calf discomfort and Uncontrolled pain Follow Up Care When: Within 10 days Test Results: Test results from this visit will be discussed in further detail at your follow-up appointment, if applicable. Discharge Plan Admission Admit Date/Time: 08/29/22 07:03 Primary Reason for Your Visit: Labor and Delivery Attending Provider: Marina Ellington Primary Care Provider: Jenny Ledesma NP Discharge Orders/Prescriptions Prescriptions: New citalopram [Celexa] 10 mg tablet 10 mg PO DAILY Qty: 30 0RF No Action PNV cmb#95-ferrous fumarate-FA 1 EACH tablet 1 ea PO DAILY DHA 200 mg Capsule 200 mg PO DAILY Referrals / Follow Up: Jenny Ledesma NP, [employer] [Primary Care Provider] - Disposition Disposition (needs filled in before D/C Order can be placed): Home, Self Care
[2022-08-31 08:23] VITALS: BP 117/65; PULSE 67; O2SAT 94
[2022-08-31 08:24] VITALS: BP 117/65; PULSE 66; PULSE 74; RESP 16; TEMP 36.6; O2SAT 93; O2SAT 95
== END 2022-08-31 09:37 | disposition home or self-care (01) | DRG 806 ==
PROVIDERS: Advanced Practice Midwife; Obstetrics & Gynecology; Admitting Provider Obstetrics & Gynecology; PCP Registered Nurse; Referring Provider Obstetrics & Gynecology; Visit Provider Obstetrics & Gynecology
DX: O24.429 Gestational diabetes mellitus in childbirth, unspecified control (principal); Z37.0 Single live birth; O72.1 Other immediate postpartum hemorrhage; O36.63X0 Maternal care for excessive fetal growth, third trimester, not applicable or unspecified; Z3A.39 39 weeks gestation of pregnancy
CPT/HCPCS: 59025; 59050; 82962; 85025; 85027; 86780; 86850; 86900; 86901; 99221; J7120; A4216; G0378

== ENCOUNTER 2024-01-01 05:55 | Day surgery (SDC) | payer BC, SELFPAY ==
--- NOTE | 2023-12-31 16:54 | PCM.HP.BLA ---
History and Physical Date of Admission: 01/01/24 Pre-Op History and Physical HPI: The patient is a 33 year old female presenting for pre-operative visit. She is scheduled for hysteroscopy, D&C with symphion and Lap bilateral salpingectomy, for AUB and desires sterilization. Pt has bleeding prior to start of Placebo pills still. on 01/01/24. Procedure discussed along with risks, benefits and complications. Other alternatives discussed for management. Consent form signed? Yes. PAST MEDICAL HISTORY PAST MEDICAL HISTORY Diagnosis Date ? ADHD (attention deficit hyperactivity disorder) ? COVID 12/21/2021 ? Gestational diabetes mellitus (GDM), antepartum 10/02/2018 ? Other specified disorders of pelvic joint 2005 apophysitis of R hip ? depression PAST SURGICAL HISTORY PAST SURGICAL HISTORY Procedure Laterality Date ? PAST SURGICAL HISTORY OF 05/24, 10/23 Compartment syndrome release bilateral LE ? TONSILLECTOMY & ADENOIDECTOMY <AGE 12 1995 CURRENT MEDICATIONS Current Outpatient Medications Medication Sig Dispense Refill ? cholecalciferol, Vitamin D3, (VITAMIN D3) 1,250 mcg (50,000 unit) cap capsule Take 1 capsule by mouth one time a week. 4 capsule 2 ? citalopram hydrobromide (CELEXA) 10 mg tablet Take 1 tablet by mouth once daily. Take with 20 mg tablet for total daily dose of 30 mg. 90 tablet 1 ? citalopram (CELEXA) 20 mg tablet Take 1 tablet by mouth once daily. 90 tablet 1 ? Drospirenone-Ethinyl Estradiol (BENITEZ, 28,) 3-0.02 mg per tablet Take 1 tablet by mouth once daily. TAKE ONE ACTIVE PILL DAILY X 3 MONTH, DISCARD PLACEBO PILLS 84 tablet 3 ? tirzepatide, weight loss (ZEPBOUND) 7.5 mg/0.5 mL pen injector Inject 7.5 mg subcutaneously one time a week. 2 mL 0 ? [START ON 01/19/2024] tirzepatide, weight loss (ZEPBOUND) 10 mg/0.5 mL pen injector Inject 10 mg subcutaneously one time a week for 28 days. Patient should start on January 19, 2024. 2 mL 0 ? albuterol HFA (VENTOLIN HFA) 90 mcg/actuation inhaler Inhale 2 Puffs as instructed every 4 hours as needed for wheezing/shortness of breath. (Patient not taking: Reported on 10/27/2023) 1 Each 0 ? atomoxetine (STRATTERA) 10 mg capsule Take 1 capsule by mouth once daily. (Patient not taking: Reported on 10/27/2023) 30 capsule 1 No current facility-administered medications for this visit. ALLERGIES: Wellbutrin [Bupropion] PERSONAL HISTORY: SOCIAL HISTORY Social History Tobacco Use ? Smoking status: Never ? Smokeless tobacco: Never Vaping Use ? Vaping Use: Never used Substance Use Topics ? Alcohol use: Not Currently Alcohol/week: 3.0 standard drinks of alcohol Types: 3 Glasses of Wine (5oz) per week Comment: Not while ? Drug use: No FAMILY HISTORY: FAMILY HISTORY FAMILY HISTORY Problem Relation Age of Onset ? Diabetes Mother Type 2 ? Lipids Mother ? other (seasonal depression) Mother ? Heart Father refers him and his siblings all required open heart. ? Hypertension Father ? Pancreatitis Father ? No Known Problems Brother ? No Known Problems Maternal Grandmother ? No Known Problems Maternal Grandfather ? Skin Cancer Paternal Grandmother ? Heart Paternal Grandmother ? Stroke Paternal Grandmother ? Hypertension Paternal Grandmother ? other (hip dysplasia) Paternal Grandmother ? Heart Paternal Grandfather Triple Bypass ? No Known Problems Son ? Breast Cancer Maternal Aunt ? No Known Problems Daughter REVIEW OF SYMPTOMS: negative except as noted above PHYSICAL EXAMINATION: VITALS: Blood pressure 110/64, pulse 84, weight 82.6 kg (182 lb), last menstrual period 12/16/2023, SpO2 97%, not currently . GENERAL: The patient is well nourished, well hydrated in no acute distress. , The patient is oriented to time, place, and person. NECK: full range of motion IMPRESSION: 33yo with AUB AND desires sterilization PLAN: Lap bilateral salpingectomy and Hysteroscopy, D&C with symphion Pt has been counseled on risks/benefits and alternatives of surgery including but not limited to anesthesia, bleeding, infection, injury to pelvic structures including bowel, bladder, ureters and vessels. Pt wishes to proceed with surgery at this time. Pre and post op instructions reviewed I have reviewed and updated past medical and surgical history, medications and allergies Marina Chairez MD
[2024-01-01] VITALS (8 sets, daily range): BP systolic 94–112; BP diastolic 44–74; PULSE 65–106; RESP 14–16; TEMP 36.2–36.8; O2SAT 92–99; BMI 26.9
[2024-01-01] MEDS: Lactated Ringers 1,000 ML 15 ML IV (06:15)
[2024-01-01 06:30] LABS: Internal QC Validated? YES +Cl - CLEAR BKGD; Pregnancy, Urine Negative Negative; Record Kit Lot#,Urine Preg 773476
--- NOTE | 2024-01-01 07:10 | PRE.ANES_ITS ---
ASA Classification* ASA Classification ASA Classification: 2 Assessment & Plan Anesthesia* Anesthesia Assessment Anesthesia Assessment: Discussed sedation and/or anesthesia options, risks, benefits, and alternatives with patient/parents/legal guardian/POA. Questions invited. The patient/parents/legal guardian/POA seems to understand and agrees to proceed with anesthesia plan. Reviewed the physical assessment, medical history, allergy history and patient home medications list prior to surgery/procedure/anesthetic and documented any changes. Performed airway and anesthesia risk assessments. Anesthesia Type Anesthesia Type: General (see written pre anesthesia record for complete assessment) Anesthesia Focused Assessment* Temperature: 97.5 F Pulse Rate: 67 Blood Pressure: 102/74 Respiratory Rate: 16 Pulse Ox: 98 Airway Assessment Mouth opens: >3 cm Mallampati Score: II Focused Labs Anesthesia Preop lab: CBC WBC 11.3 K/mm3 (4.4-11.0) H 08/30/22 09:25 RBC 4.19 M/mm3 (4.2-5.4) L 08/30/22 09:25 Hgb 12.9 g/dL (12.0-15.0) 08/30/22 09:25 Hct 39.7 % (37-47) 08/30/22 09:25 Plt Count 134 K/mm3 (150-450) L 08/30/22 09:25 CHEMISTRY POC Glucose 94 mg/dL (74-106) 08/30/22 05:38 COAG Urine Test Negative Negative 01/01/24 06:12 Pre-Assessment Diagnosis/Proposed Procedure Planned Operative Procedure(s): (B) Laparoscopic, Salpingectomy, possible hysteroscopy d&c Anesthesia History 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 When Was Last Pacemaker Check QUESTION #4 FULL TEXT: You/Your Family Experience fever (hyperthermia) with Anesthesia Last Oral Intake Last Oral intake: Last Oral Intake NPO since 00:00 01/01/24 06:25 Meds taken in AM with sips of Yes 01/01/24 06:25 water? Meds patient instructed to take am of surgery PONV PONV - seafood team member: PONV - seafood team member Female Yes 12/16/23 15:10 HX of Motion Sickness No 12/16/23 15:10 HX of N/V After Surgery No 12/16/23 15:10 Non-Smoker Yes 12/16/23 15:10 Duration of Surgery greater No 12/16/23 15:10 than 60 minutes Number of Risk Factors 2 12/16/23 15:10 PONV Score Moderate Risk 12/16/23 15:10 Height & Weight Height & Weight: Anesthesia: Height & Weight Height 5 ft 9 in 01/01/24 06:25 Weight: 82.554 kg 01/01/24 06:25 Body Mass Index (BMI) 26.9 01/01/24 06:25 Respiratory Assessment Respiratory Assessment - seafood team member: Respiratory Tract Infection Hx - seafood team member Hx Respiratory Tract Infection No 12/16/23 15:10 STOP Sleep Apnea STOP Sleep Apnea - seafood team member: STOP Sleep Apnea - seafood team member Hx Hypertension No 12/16/23 15:10 Hx Sleep Apnea No 12/16/23 15:10 CPAP BIPAP Do you snore loudly (louder No 12/16/23 15:10 than talking or can be heard Do you often feel tired/ No 12/16/23 15:10 fatigued/ sleepy during daytime? Has anyone observed you stop No 12/16/23 15:10 breathing during sleep? STOP Results Negative 12/16/23 15:10 QUESTION #5 FULL TEXT : Do you snore loudly (louder than talking or can be heard through closed doors)? Tobacco Use History Tobacco Use History - seafood team member: Tobacco Use History - seafood team member Tobacco Use Smoking Status Never smoker 12/16/23 15:10 Hx Tobacco Use No 12/16/23 15:10 Years Smoking Packs Smoked per Day Smoking Cessation Date was within the last 15 years Hx Smoking Cessation Date Hx Smoking Cessation Counseling Hematologic Medial History Hematologic Hx - seafood team member: Hematologic Medical Hx - cooler tender Hx of Blood Transfusion No 12/16/23 15:10 Hx of Transfusion in last 3 No 12/16/23 15:10 Months Date of Last Transfusion (if within last 3 months) Ever experience any problems No 12/16/23 15:10 with transfusion(s)? Specify any problems Hx of Preganancy in last 3 No 12/16/23 15:10 Months Nurse Filling Out Transfusion VCHRISTIN 12/16/23 15:10 & Questions: Date: 12/16/23 12/16/23 15:10 Time: 15:11 12/16/23 15:10 Patient unable to answer at this time (ie. confused, unrespo /Reproduction History /Reproductive History - seafood team member: /Reproductive Hx- seafood team member Hx Now No 12/16/23 15:10 Gestational Age (in weeks): EDC: Hx Hx Para Hx Section SAB No 12/16/23 15:10 Active Medications Active Medications: Current Medications Generic Name Dose Route Start Last Admin Trade Name Freq PRN Reason Stop Dose Admin Lactated Ringer's 1,000 mls @ 15 mls/hr 01/01/24 06:15 01/01/24 06:15 IV 15 mls/hr .Q48H DHARMESH Administration PFSH Medical History (Updated 12/16/23 @ 15:10 by Meera Green) Non-smoker History of echocardiogram atony of uterus with hemorrhage, delivered ADHD Compartment syndrome Depression Anxiety Excessive growth affecting management of mother 39 weeks gestation of Gestational diabetes First degree perineal laceration Vaginal delivery depression Gestational diabetes Home Medications ?Medication ?Instructions ?Recorded ?Last Taken ?Type cholecalciferol (vitamin D3) 1,250 1,250 mcg PO QWEEK 12/16/23 Unknown History mcg (50,000 unit) capsule citalopram 20 mg tablet 30 mg PO DAILY 12/16/23 Unknown History drospirenone 3 mg-ethinyl 1 tab PO DAILY 12/16/23 Unknown History estradiol 0.02 mg tablet (Ana (28)) tirzepatide (weight loss) 2.5 2.5 mg subcut QWEEK 12/16/23 Unknown History mg/0.5 mL subcutaneous pen injector (Zepbound) Allergy/AdvReac Type Severity Reaction Status Date / Time bupropion Allergy Hives Verified 01/01/24 06:24 Surgical History (Updated 08/29/22 @ 10:00 by Helena Pope) H/O fasciotomy History of adenectomy History of tonsillectomy Social History Smoking Status: Never smoker Review of Systems (Anesthesia) ROS Narrative System reviewed and no additional complaints, except as documented.
--- NOTE | 2024-01-01 07:15 | PCM.DC ---
Discharge Instructions Diet Discharge Diet: No restrictions Activity May resume sexual activity in: 1-2 weeks Lifting Restrictions: 20-25 lbs Dressing / Incision Call your doctor if your incision/area has: Continuous Slow Oozing, Sudden Increased Bleeding, Increased Pain/ Swelling, Increased Redness, Foul Smelling Discharge and Swelling at the incision site Call your doctor if you observe: Fever of 101 or Higher, Inability to urinate, Inability to have a bowel movement, Using more than 1 pad per hour and Uncontrolled pain Additional Dressing/Incision Instructions:: You have skin glue over your incision sites, do not pick off. You may shower and let the soap and water run over the incision sites and dab dry. Follow Up Care Please Follow Up With: Marina Ellington MD When: 1-2 weeks post OP if you need an appointment please call [phone] Test Results: Test results from this visit will be discussed in further detail at your follow-up appointment, if applicable. Discharge Plan Admission Attending Provider: Marina Ellington Primary Care Provider: Jenny Ledesma NP Instructions Print Language: [place] Discharge Orders/Prescriptions Prescriptions: No Action citalopram 20 mg tablet 30 mg PO DAILY drospirenone-ethinyl estradiol [Ana (28)] 3-0.02 mg tablet 1 tab PO DAILY cholecalciferol (vitamin D3) 1,250 mcg (50,000 unit) capsule 1,250 mcg PO QWEEK Zepbound 2.5 mg/0.5 mL pen injector 2.5 mg subcut QWEEK Patient Comments: PT KNOWS LAST DOSE OF THIS MED WILL BE 12/17/2023 Referrals / Follow Up: Jenny Ledesma NP, AUTO RENTAL CLERK-C [Primary Care Provider] - Disposition Disposition (needs filled in before D/C Order can be placed): Home, Self Care
--- NOTE | 2024-01-01 07:30 | FALS_PTH ---
PATIENT: MARINO PEDROZA LOC: [facility] [place] U#:[id number] AGE/SX: 33/F ROOM: RE01/01/[address]: Dr. Marina Ellington, MDDOB: 1990 BED: DIS: 01/01/2024 SPEC #: [id number] RECD: 01/01/24 08:39 STATUS: USAMA JAYLA #: [id number] KENYA: 01/01/24 07:[address]: Marina Ellington DEPT: SURGICAL PATHOLOGY RECD BY: Alley Lopez ENTERED: 01/01/24 09:04 SP TYPE: FALL TUBES OTHR DR: Jenny Ledesma, STOCK ASSOCIATE-C Tissues: A - Fallopian tube B - Endometrium, NOS Procedures: Surgery Specimen Level II Surgery Specimen Level IV HEADER OPERATION: Laparoscopic, bilateral salpingectomy, hysterectomy PRE-OP DIAGNOSIS: Elective sterilization, bleeding TISSUE SUBMITTED: A- Bilateral fallopian tubes, B- Endometrial curettings and endometrial polyp MICROSCOPIC DIAGNOSIS A. Right and left fallopian tubes, bilateral salpingectomies: Two complete segments of fallopian tubes with no pathologic change. B. Endometrium and polyp, curettings: Polypoid fragments of transition endometrium. Fragments of benign superficial endocervix. / 01/02/2024 MICROSCOPIC DESCRIPTION Slides are reviewed. GROSS DESCRIPTION A. Received in fixative is one container labeled with the patient's name and designated bilateral fallopian tubes. The specimen consists of bilateral fallopian tubes including fimbrial ends measuring 8.0 cm in length and 0.8 cm in diameter and 8.0cm in length and 0.8cm in diameter. The fallopian tubes are not identified as right or left. Sections reveal unremarkable cut surfaces. Hide Stretcher Hand sections are submitted in two cassettes with each cassette containing one fallopian tube. B. Received in fixative is one container labeled with the patient's name and designated Endometrial curettings and endometrial polyp. The specimen consists of multiple irregular fragments of melendez-pink soft tissue mixed with blood clots that in aggregate measure 3.0 x 2.5 x 0.2 cm. The specimen is totally submitted in one cassette. SJ: 01/01/2024 TC:5 CPT: 13583 x2 ,[id number]
[2024-01-01] MEDS: Bupivacaine 0.5% PF 10 ML VIAL (07:50)
--- NOTE | 2024-01-01 08:02 | PCM.OPRPT ---
Report of Operation Date of Procedure: 01/01/24 Pre-Operative Diagnosis: AUB, Desires Sterilzation Post-Operative Diagnosis: same, Endometrial polyp Surgery/Procedure Performed:: Hysteroscopy, Dilation and curettage, polypectomy with symphion, Laparoscopic bilateral salpingectomy Description of Surgical Findings:: normal tubes and ovaries uterus appears normal. One endometrial polyp on left lateral aspect. Surgeon: Marina Ellington assembler carbon brushes: None Type of Anesthesia: General and Local Special Medications: 0.5% marcaine Specimen's removed: Bilateral fallopian tubes, Endometrial curettings, endometrial polyp Drains: none Estimated Blood Loss (mL): 5cc Fluids Replaced: 700 Description of Procedure: After informed consent was obtained patient was taken to the operating room she was placed in supine position she was given anesthesia. She was then placed in the [facility] stirrups and she was prepped and draped in normal sterile fashion. Bladder was drained prior to the start of procedure. At this time attention was turned to the vaginal portion where weighted speculum placed at posterior fornix vagina single-tooth tenaculum was used to gently grasp the internal the cervix. uterus was gently sounded to approximately 9 cm. Gentle dilatation was performed once adequate dilatation of the cervix was achieved the hysteroscope using normal saline as a distention medium was placed. Tubal ostia visualized and endometrial polyp noted on left lateral aspect. Symphion resecting device used to obtain endometrial curettings and to perform polypectomy. Tissue will be sent to pathology for evaluation. Uterine manipulator was placed without difficulty. Legs then placed in parallel with the abdomen the tenaculum and the weighted speculum were removed. 2 towel clamps were placed at level of umbilicus. Marcaine was injected infraumbilical and a small incision was made. The 5 mm trocar was placed under direct visualization. CO2 gas was used to insufflate the intra-abdominal cavity. Upon inspection no gross abnormalities appreciated- the uterus tubes and ovaries appeared to be normal. At this time then the LLQ and RLQ ports were placed First Marcaine was injected and small incision was made a knife and the 5 mm trocars were placed. At this time then tubes were traced back to the fimbriated ends. Enseal was used to coagulate and ligate along mesosalpinx bilaterally until tubes removed completely. Good hemostasis was appreciated. At this time procedure was deemed complete successful. The gas was desufflated on from the intra-abdominal cavity. The trochars were removed. Skin was closed using 4-0 Monocryl in a subcutaneous fashion. Dermabond glue was placed. Instrument lap and needle counts were correct ?2. The uterine manipulator was removed. Vaginal sweep was performed it was negative. There were no complications anticipated normal postoperative course for this patient. Fluid deficit was 350 cc for hysteroscopy. Grafts/Implants Used: none Procedure Start Time: 07:40 Procedure Stop Time: 07:59 Admit VTE Documentation VTE Present on Admission: Yes VTE Mechan Device Prophylaxis: SCD's VTE Pharm Prophylaxis ordered?: No Reason prophylaxis not ordered:: Procedure Not Indicated
--- NOTE | 2024-01-01 08:28 | PCM.POST.ANE ---
Anesthesia: Postop Eval I Current Vital Signs Temperature: 97.2 F Pulse Rate: 92 Blood Pressure: 94/73 Respiratory Rate: 16 Pulse Ox: 94 Oxygen Delivery Method: Simple Mask Oxygen Flow Rate (L/min): 6 Assessment Airway patent: Yes Spontaneous unlabored respirations: Yes Mental status: Awake and Calm nausea: No Vomiting: No Anesthesia Complication: No Fluid Hydration Crystalloid volume administer (ml): 700 Total IV fluid infused: 700 Progress Note Anesthesia document: Postop Eval 1 completed: Yes
--- NOTE | 2024-01-01 08:57 | POSTOPAN2_ITS ---
Anesthesia Postop Eval I Sum Postop Eval Completion status Anesthesia document: Postop Eval 1 completed: Yes Anesthesia Postop Eval I Summary Anesthesia Postop Eval I Summary: Anesthesia Postop Eval I: Assessment Summary Airway patent Yes 01/01/24 08:29 ELECTRIC MOTOR FITTER.YIFANOBWesly Spontaneous unlabored Yes 01/01/24 08:29 ELECTRIC MOTOR FITTER.LEYT respirations Mental status Awake,Calm 01/01/24 08:29 ELECTRIC MOTOR FITTER.LETY nausea No 01/01/24 08:29 ELECTRIC MOTOR FITTER.LETY Vomiting No 01/01/24 08:29 ELECTRIC MOTOR FITTER.LETY Anesthesia Postop Eval I: Fluid Summary Crystalloid volume administer 700 01/01/24 08:29 ELECTRIC MOTOR FITTER.LETY (ml) Colloids volume administered ( ml) Blood Product volume administered (ml) Total IV fluid infused 700 01/01/24 08:29 ELECTRIC MOTOR FITTER.LETY Anesthesia Postop Eval I: Summary Notes Anesthesia Complication No 01/01/24 08:29 ELECTRIC MOTOR FITTERAPOLLO Anesthesia Complication Comment: Post-operative progress note Anesthesia: Postop Eval II Evaluation Mental status: Awake Pain Level: 0 nausea: No Vomiting: No
--- NOTE | 2024-01-01 08:57 | PCM.POSTANE2 ---
Anesthesia Postop Eval I Sum Postop Eval Completion status Anesthesia document: Postop Eval 1 completed: Yes Anesthesia Postop Eval I Summary Anesthesia Postop Eval I Summary: Anesthesia Postop Eval I: Assessment Summary Airway patent Yes 01/01/24 08:29 ACADEMIC ADVISEMENT DIRECTOR.YIFANOBWesly Spontaneous unlabored Yes 01/01/24 08:29 ACADEMIC ADVISEMENT DIRECTOR.LETY respirations Mental status Awake,Calm 01/01/24 08:29 ACADEMIC ADVISEMENT DIRECTOR.LETY nausea No 01/01/24 08:29 ACADEMIC ADVISEMENT DIRECTOR.LETY Vomiting No 01/01/24 08:29 ACADEMIC ADVISEMENT DIRECTOR.LETY Anesthesia Postop Eval I: Fluid Summary Crystalloid volume administer 700 01/01/24 08:29 ACADEMIC ADVISEMENT DIRECTOR.LETY (ml) Colloids volume administered ( ml) Blood Product volume administered (ml) Total IV fluid infused 700 01/01/24 08:29 ACADEMIC ADVISEMENT DIRECTOR.LETY Anesthesia Postop Eval I: Summary Notes Anesthesia Complication No 01/01/24 08:29 ACADEMIC ADVISEMENT DIRECTORAPOLLO Anesthesia Complication Comment: Post-operative progress note Anesthesia: Postop Eval II Evaluation Mental status: Awake Pain Level: 0 nausea: No Vomiting: No
[2024-01-01] MEDS: HYDROcodone Bitartrate/Apap 5/325 Tablet PO (09:08)
== END 2024-01-01 10:11 | disposition home or self-care (01) ==
LOC: SDC 05:56 → AC 05:57
PROVIDERS: Anesthesiology; PCP Registered Nurse; Referring Provider Obstetrics & Gynecology; Visit Provider Obstetrics & Gynecology
PROC: (CPT 58661; principal; 2024-01-01 07:15)
DX: N84.0 Polyp of corpus uteri (principal); N93.9 Abnormal uterine and vaginal bleeding, unspecified; Z30.2 Encounter for sterilization
CPT/HCPCS: 58661; 58558; 00840; 81025; 88302; 88305; J7120; C1760; J2405